=== PATIENT | male | born 1970 | race Caucasian/White ===

== ENCOUNTER 2019-08-30 15:12 | Emergency (ER) | payer BC ==
--- NOTE | 2019-08-30 15:17 | ERPHSYRPT ---
- History of Present Illness Time Seen by Provider: 08/30/19 15:16 Source: patient Exam Limitations: no limitations Physician History: 49 y/o white male with h/o chronic low back pain presents with acute exacerbation of lbp. pt denies fall or injury. he noticed an ache left lower back. as the day progressed, pain worsened and shooting down back of left buttock and leg. pt drove himself and states he cannot get a ride home. pt has no h/o htn but is found to have asymptomatic bigh bp at this visit. codeine use not a true allergy. causes nausea. Timing/Duration: today Method of Injury: other (none) Back Pain Location: lumbar spine (left side) Back Pain Radiation: buttocks, upper legs (posteriorly) Severity of Pain-Max: moderate Severity of Pain-Current: moderate Associated Symptoms: lower back pain, muscle spasms, No urinary incontinence, No loss of bowel control, No constipation, No problems urinating, No numbness in legs/feet Previous symptoms: same symptoms as today Allergies/Adverse Reactions: codeine phosphate [From Robitussin A-C] Adverse Reaction (Mild, Verified 15:19) vomiting/stomach ache guaifenesin [From Robitussin A-C] Adverse Reaction (Mild, Verified 08/30/19 15: 19) vomiting/stomach ache Home Medications: Cannabidiol (Cbd) Extract [Epidiolex] 100 mg PO DAILY 08/30/19 [History] Ibuprofen [Ibu] 800 mg PO DAILY 08/30/19 [History] Hx Tetanus, Diphtheria Vaccination/Date Given: No Hx Influenza Vaccination/Date Given: No Hx Pneumococcal Vaccination/Date Given: No - Review of Systems Constitutional: No Symptoms Eyes: No Symptoms Ears, Nose, & Throat: No Symptoms Respiratory: No Symptoms Cardiac: No Symptoms Abdominal/Gastrointestinal: No Symptoms Genitourinary Symptoms: No Symptoms Musculoskeletal: Back Pain Skin: No Symptoms Neurological: No Symptoms Psychological: No Symptoms Endocrine: No Symptoms Hematologic/Lymphatic: No Symptoms Immunological/Allergic: No Symptoms All Other Systems: Reviewed and Negative - Past Medical History Pertinent Past Medical History: Yes Neurological History: Peripheral Neuropathy ENT History: No Pertinent History Cardiac History: No Pertinent History Respiratory History: Asthma Endocrine Medical History: No Pertinent History Musculoskeletal History: Arthritis GI Medical History: Hernia History: No Pertinent History Psycho-Social History: No Pertinent History Male Reproductive Disorders: No Pertinent History Other Medical History: TONGUE CANCER-CHEMO AND RADIATION. No hx of DM - Past Surgical History Past Surgical History: Yes Neuro Surgical History: No Pertinent History Cardiac: No Pertinent History Respiratory: No Pertinent History Gastrointestinal: Hernia Repair Genitourinary: No Pertinent History Musculoskeletal: No Pertinent History Male Surgical History: No Pertinent History Other Surgical History: BIOPSY ON TONGUE - Social History Smoking Status: Current some day smoker Exposure to second hand smoke: Yes Drug Use: none Patient Lives Alone: No - Nursing Vital Signs Nursing Vital Signs: Initial Vital Signs Temperature 97.3 F 08/30/19 15:31 Pulse Rate 108 H 08/30/19 15:31 Respiratory Rate 18 08/30/19 15:31 Blood Pressure 188/119 08/30/19 15:31 O2 Sat by Pulse Oximetry 99 08/30/19 15:31 Pain Scale Pain Intensity [Left Back] 8 Pain Intensity 8 - Physical Exam General Appearance: mild distress, alert, anxiety Eye Exam: PERRL/EOMI, eyes nml inspection Ears, Nose, Throat Exam: normal ENT inspection, moist mucous membranes Neck Exam: normal inspection, non-tender, supple, full range of motion Respiratory Exam: normal breath sounds, lungs clear, airway intact, No chest tenderness, No respiratory distress Cardiovascular Exam: regular rate/rhythm, normal heart sounds, normal peripheral pulses Gastrointestinal Exam: soft, No tenderness Rectal Exam: not done Back Exam: normal inspection, normal range of motion, muscle spasm, No CVA tenderness, No vertebral tenderness Extremity Exam: normal inspection, normal range of motion, pelvis stable Neurologic Exam: alert, oriented x 3, cooperative, soft mud molder II-XII nml as tested Skin Exam: normal color, warm, dry Lymphatic Exam: No adenopathy SpO2 Interpretation: normal O2 Delivery: Room Air - Course Nursing assessment & vital signs reviewed: Yes Ordered Tests: Medication Summary Discontinued Medications Generic Name Dose Route Start Last Admin Trade Name Freq PRN Reason Stop Dose Admin Clonidine 0.1 mg 08/30/19 16:14 08/30/19 16:18 Catapres 0.1 Mg PO 08/30/19 16:15 0.1 mg STAT ONE Administration Clonidine Confirm 08/30/19 16:16 Catapres 0.1 Mg Administered 08/30/19 16:17 Dose 0.1 mg .ROUTE .STK-MED ONE - Progress Progress: improved Counseled pt/family regarding: diagnosis, need for follow-up - Departure Departure Disposition: Home Clinical Impression: HTN (hypertension), Chronic low back pain, Sciatica Condition: Stable Critical Care Time: No Referrals: FLORENCE LESLIE [Primary Care Provider] - Additional Instructions: take medications as prescribed. follow up with primary doctor tomorrow for further management of high blood pressure and chronic low back pain Prescriptions: Carisoprodol 350 mg [Soma 350 mg] 350 mg PO Q12H PRN #6 tablet PRN Reason: Muscle Spasms Ondansetron HCl [Zofran] 4 mg PO TID PRN #10 tablet PRN Reason: Nausea/Vomiting Oxycodone HCl/Acetaminophen [Percocet 5-325 mg Tablet] 1 each PO Q12H PRN #4 tablet MDD 2 PRN Reason: Pain Prednisone 10 mg [Deltasone 10 mg] 10 mg PO TID #12 tablet
[2019-08-30] MEDS ORDERED: Catapres 0.1 MG PO ONE (16:14)
[2019-08-30] MEDS ORDERED: Catapres 0.1 MG ONE (16:16)
[2019-08-30 16:45] VITALS: BP 153/103; PULSE 88; O2SAT 94
== END 2019-08-30 16:56 | disposition home or self-care (01) ==
LOC: ED 15:12
DX: I10 Essential (primary) hypertension (principal); M54.5 Low back pain; M54.30 Sciatica, unspecified side
CPT/HCPCS: 99283; A9270-GY

== ENCOUNTER 2020-01-09 14:58 | Emergency (ER) | payer BC ==
--- NOTE | 2020-01-09 15:34 | ERPHSYRPT ---
- History of Present Illness Time Seen by Provider: 01/09/20 15:08 Patient Subjective Stated Complaint: pt reports bilat ear pain, throat pain as well as swelling to the lymph nodes of the neck. pt reports history of oral cancer. Triage Nursing Assessment: pt is aox3, pupils perrl, afebrile, resps easy and non labored, radial pulses strong and equal, cap refill < 3 seconds, pt skin pink warm dry. slight swelling noted to the neck bilat, tenderness. pt skin is intact. pt denies any difficulty swallowing. Physician History: Patient is here with sore throat, swollen lymph nodes. Patient states that he had some type of oral cancer 2011. For the past 4 days patient has had swollen lymph nodes in his neck, throat pain. He has no falls, trauma. No fever here. No cough. Bilateral ear pain. Location: throat Quality: sore Radiation: none Severity: moderate Duration: 4 days Timing: gradual Modifying factors/associated signs and symptoms: Bilateral swollen lymph nodes of the neck with ear pain and history of oral cancer. Allergies/Adverse Reactions: codeine phosphate [From Robitussin A-C] Adverse Reaction (Mild, Verified 15:14) vomiting/stomach ache guaifenesin [From Robitussin A-C] Adverse Reaction (Mild, Verified 01/09/20 15: 14) vomiting/stomach ache Home Medications: Albuterol Sulfate 1 each IH Q4-6HPRN PRN 01/09/20 [History] Fluticasone Propionate [Flonase NASAL] 1 spray INTRANASAL DAILY 01/09/20 [ History] Losartan Potassium [Cozaar] 100 mg PO HS 01/09/20 [History] Hx Tetanus, Diphtheria Vaccination/Date Given: Yes Hx Influenza Vaccination/Date Given: No Hx Pneumococcal Vaccination/Date Given: No Immunizations Up to Date: Yes Travel Risk - International Travel Have you traveled outside of the country in past 3 weeks: No Have you or anyone close to you been diagnosed with or: No Do your reside in a community with a known COVID-19 case?: Yes If Yes where:: [facility] - Coronavirus Screening Has patient experienced Coronavirus symptoms: No - Review of Systems Constitutional: No Fever, No Chills Eyes: No Symptoms Ears, Nose, & Throat: No Symptoms, Ear Pain, Throat Pain (swollen lymph nodes) Respiratory: No Cough, No Dyspnea Cardiac: No Chest Pain, No Edema, No Syncope Abdominal/Gastrointestinal: No Abdominal Pain, No Nausea, No Vomiting, No Diarrhea Genitourinary Symptoms: No Dysuria Musculoskeletal: No Back Pain, No Neck Pain Skin: No Rash Neurological: No Dizziness, No Focal Weakness, No Sensory Changes Psychological: No Symptoms Endocrine: No Symptoms All Other Systems: Reviewed and Negative - Past Medical History Pertinent Past Medical History: Yes Neurological History: Migraines ENT History: No Pertinent History Cardiac History: No Pertinent History, Hypertension Respiratory History: Asthma Endocrine Medical History: No Pertinent History Musculoskeletal History: Osteoarthritis GI Medical History: Hernia History: No Pertinent History Psycho-Social History: No Pertinent History Male Reproductive Disorders: No Pertinent History Other Medical History: previous smoker. ORAL CANCER 2012, tongue, lymph nodes - Past Surgical History Past Surgical History: Yes Neuro Surgical History: No Pertinent History Cardiac: No Pertinent History Respiratory: No Pertinent History Gastrointestinal: Hernia Repair Genitourinary: No Pertinent History Musculoskeletal: No Pertinent History Male Surgical History: No Pertinent History Other Surgical History: BIOPSY ON TONGUE - Social History Smoking Status: Former smoker Exposure to second hand smoke: Yes Drug Use: none Patient Lives Alone: Yes - Nursing Vital Signs Nursing Vital Signs: Initial Vital Signs Temperature 98.1 F 01/09/20 15:01 Pulse Rate 102 H 01/09/20 15:01 Respiratory Rate 20 01/09/20 15:01 Blood Pressure 177/116 01/09/20 15:01 O2 Sat by Pulse Oximetry 98 01/09/20 15:01 Pain Scale Pain Intensity 4 - Physical Exam General Appearance: no apparent distress, alert Eye Exam: PERRL/EOMI, eyes nml inspection Ears, Nose, Throat Exam: normal ENT inspection, TMs normal, pharynx normal, moist mucous membranes Neck Exam: normal inspection, non-tender, supple, full range of motion Respiratory Exam: normal breath sounds, lungs clear, No respiratory distress Cardiovascular Exam: regular rate/rhythm, normal heart sounds, normal peripheral pulses Gastrointestinal/Abdomen Exam: soft, normal bowel sounds, No tenderness, No mass Back Exam: normal inspection, normal range of motion, No CVA tenderness, No vertebral tenderness Extremity Exam: normal inspection, normal range of motion, pelvis stable Neurologic Exam: alert, oriented x 3, cooperative, normal mood/affect, nml cerebellar function, nml station & gait, sensation nml, No motor deficits Skin Exam: normal color, warm, dry, No rash Lymphatic Exam: No adenopathy SpO2 Interpretation: normal SpO2: 98 Comments: 01/09/20 15:34 No trismus, able to fully extend neck, normal range of motion of neck without pain. Uvula is midline, no swelling of the mouth, noraml oropharynx. No exudate, no signs of meningitis, no floor of mouth swelling, no hot potato voice on exam. No buccal swelling, no gum bleeding, no signs of tooth abscess/infection. TMs are clear bilaterally. On neck exam patient does have bilateral swollen lymph nodes of his cervical lymphadenopathy. Ordered Tests: Active Orders 24 hr Category Date Time Status IV Insertion STAT Care 01/09/20 15:18 Active NECK WITH CONTRAST [CT] Stat Exams 01/09/20 15:19 Taken CBC W DIFF Stat Lab 01/09/20 15:25 Completed CMP Stat Lab 01/09/20 15:25 Completed Manual Differential NC Stat Lab 01/09/20 15:25 Completed Lab/Rad Data: Laboratory Result Diagrams 01/09/20 15:25 01/09/20 15:25 Laboratory Results 01/09/20 01/09/20 01/09/20 Range/Units 15:25 15:25 15:25 WBC 7.1 (4.0-10.5) K/mm3 RBC 5.22 (4.1-5.6) M/mm3 Hgb 15.8 (12.5-18.0) gm/dl Hct 46.9 (42-50) % MCV 89.8 (78-100) fl MCH 30.3 (26-32) pg MCHC 33.7 (32-36) g/dl RDW 13.6 (11.5-14.0) % Plt Count 205 (150-450) K/mm3 MPV 10.2 (7.5-11.0) fl Segmented Neutrophils 73 H (36.-66.) % Lymphocytes (Manual) 12 L (24-44) % Monocytes (Manual) 9 (0.0-12.0) % Eosinophils (Manual) 3 (0.00-3.0) % Basophils (Manual) 1 (0.0-1.0) % Atypical Lymphocytes 2 % Platelet Estimate NORMAL (NORMAL) RBC Morphology NORMAL Sodium 142 (137-145) mmol/L Potassium 3.8 (3.5-5.1) mmol/L Chloride 106 (98-107) mmol/L Carbon Dioxide 25 (22-30) mmol/L Anion Gap 14.6 (5-15) MEQ/L BUN 16 (9-20) mg/dL Creatinine 0.91 (0.66-1.25) mg/dL Estimated GFR > 60.0 ML/MIN Glucose 139 H (74-106) mg/dL Calcium 9.2 (8.4-10.2) mg/dL Total Bilirubin 1.00 (0.2-1.3) mg/dL AST 29 (17-59) U/L ALT 54 H (0-50) U/L Alkaline Phosphatase 76 (38-126) U/L Serum Total Protein 7.4 (6.3-8.2) g/dL Albumin 4.3 (3.5-5.0) g/dL Group A Strep Antibody NOT DETECTED (NEGATIVE) - Progress Progress: improved Progress Note: 01/09/20 15:35 Differential diagnosis includes strep throat, recurrence of cancer, viral illness. -We will obtain CBC, CMP, rapid strep -We will obtain a CT scan with IV contrast soft tissue neck looking for any abnormalities. Either way, patient absolutely needs to follow-up with his oncologist, Dr. Liriano next week. He will need a full oncologist exam looking for possible recurrence of his cancer given his sore throat, cervical lymphadenopathy and history. 01/09/20 16:22 Labs mostly unremarkable. Normal white blood cell count. However lymphocytes are low. Patient should follow-up for repeat check next week. CT scan not showing anything obvious. At this point, will have patient follow-up with his oncologist. - Departure Departure Disposition: Home Clinical Impression: Cervical lymphadenopathy, Sore throat Condition: Stable Critical Care Time: No Referrals: FLORENCE LESLIE [Primary Care Provider] - Instructions: Lymphedema (DC) Additional Instructions: Follow-up with your oncologist next week for repeat exam and repeat blood work.
[2020-01-09 15:50] LABS: Hematocrit 46.9 % (42-50); Hemoglobin 15.8 gm/dl (12.5-18.0); Mean Cell Volume 89.8 fl (78-100); Mean Corpuscular Hemoglobin 30.3 pg (26-32); Mean Corpuscular Hgb Concent. 33.7 g/dl (32-36); Mean Platelet Volume 10.2 fl (7.5-11.0); Platelet Count 205 K/mm3 (150-450); Red Blood Count 5.22 M/mm3 (4.1-5.6); Red Cell Distribution Width 13.6 % (11.5-14.0); White Blood Count 7.1 K/mm3 (4.0-10.5)
[2020-01-09 15:54] LABS: ALBUMIN 4.3 g/dL (3.5-5.0); ALKALINE PHOSPHATASE 76 U/L (38-126); ANION GAP 14.6 MEQ/L (5-15); BLOOD UREA NITROGEN 16 mg/dL (9-20); CHLORIDE 106 mmol/L (98-107); Calcium 9.2 mg/dL (8.4-10.2); Carbon Dioxide 25 mmol/L (22-30); Creatinine 1 0.91 mg/dL (0.66-1.25); Glucose 139 mg/dL (74-106); Potassium 3.8 mmol/L (3.5-5.1); SGOT/AST 29 U/L (17-59); SGPT/ALT 54 U/L (0-50); SODIUM 142 mmol/L (137-145); Total Protein 7.4 g/dL (6.3-8.2)
[2020-01-09 15:59] LABS: ATYPICAL LYMPHS 2 %; Basophil 1 % (0.0-1.0); Eosinophil 3 % (0.00-3.0); Lymphocytes 12 % (24-44); Monocyte 9 % (0.0-12.0); Neutrophils 73 % (36.-66.); Platelet Estimate NORMAL (NORMAL); Total Cells Counted 100
[2020-01-09 16:34] VITALS: BP 130/89; PULSE 76; O2SAT 96
--- NOTE | 2020-01-09 18:16 | XRAY ---
Indication: Sore throat. Swollen lymph nodes. History oral/tongue cancer. Multiple contiguous axial images obtained through the neck using 60 cc Isovue 370 contrast. Comparison: June 19, 2018. Patient is again edentulous. Stable chronic left neck benign calcifications adjacent to the sternocleidomastoid muscle and adjacent minimal subcutaneous fatty stranding presumed post-therapeutic given history oral/tongue cancer. Parotid and submandibular glands are bilaterally symmetric. No pathologic cervical, submandibular, or supraclavicular lymphadenopathy. Major arteries and veins are normal in course and caliber. Thyroid gland remains atrophic. Supra and infraglottic airway are widely patent. Normal epiglottis. Visualized osseous structures intact without suspicious bony lesions. Underlying cervical spine again demonstrates mild multilevel degenerative changes. Base of the brain and lung apices are unremarkable. Impression: 1. Again chronic left neck benign calcifications with subcutaneous fatty stranding presumed post-therapeutic given patient's history of cancer. 2. Stable mild multilevel spinal degenerative changes. 3. Remaining CT neck with contrast exam is negative. Comment: Preliminary interpretation was made by [facility]. No critical discrepancy.
== END 2020-01-09 16:36 | disposition home or self-care (01) ==
LOC: ED 14:58
DX: R59.1 Generalized enlarged lymph nodes (principal); J02.9 Acute pharyngitis, unspecified; H92.03 Otalgia, bilateral; R59.9 Enlarged lymph nodes, unspecified; Z79.899 Other long term (current) drug therapy; I10 Essential (primary) hypertension
CPT/HCPCS: 36000; 36415; 70491; 80053; 85025; 87651; 99284

== ENCOUNTER 2024-05-14 05:11 | Emergency (ER) | payer MEDICARE, BC ==
[2024-05-14 05:26] VITALS: TEMP 97.9
[2024-05-14] MEDS ORDERED: Sterile H2O 10 ml IJ ONE (05:50)
[2024-05-14] MEDS ORDERED: DUONEB 0.5-3 MG/3 ml Neb IH ONE (05:51)
[2024-05-14] MEDS ORDERED: solu-MEDROL ONE (05:51)
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
[2024-05-14] MEDS: solu-MEDROL 125 MG, Sterile H2O 10 ml 2 ML IV ONE (05:54)
[2024-05-14] MEDS: DUONEB 0.5-3 MG/3 ml Neb IH ONE (05:55)
[2024-05-14] MEDS ORDERED: ROCEPHIN 2 GM/100 ML NACL 2 GM/100 ML IVPB IV ONE (05:59)
[2024-05-14] MEDS: ROCEPHIN 2 GM/100 ML NACL 2 GM/100 ML IVPB IV ONE (06:24)
[2024-05-14 06:27] LABS: Absolute Neutrophil Ct (ANC) 6.47 x10^3/uL (1.78-5.38); BASOPHIL % 1.8 % (0.2-1.2); Basophil (Absolute #) 0.17 x10^3/uL (0.01-0.08); Eosinophil % 10.8 % (0.8-7.0); Eosinophil (Absolute #) 1.04 x10^3/uL (0.04-0.54); Hematocrit 45.5 % (40.1-51.0); Hemoglobin 15.3 g/dL (13.7-17.5); IMMATURE GRAN # 0.05 x10^3u/L (0.001-0.031); IMMATURE GRAN % 0.5 % (0.001-0.429); Lymphocyte (Absolute #) 1.24 x10^3/uL (1.32-3.57); Lymphocytes % 12.8 % (21.8-53.1); Mean Cell Volume 89.9 fL (79.0-92.2); Mean Corpuscular Hemoglobin 30.2 pg (25.7-32.2); Mean Corpuscular Hgb Concent. 33.6 g/dL (32.3-36.5); Monocytes % 7.2 % (5.3-12.2); Neutrophil % 66.9 % (34.0-67.9); Platelet Count 295 x10^3/uL (163-337); Red Blood Count 5.06 x10^6/uL (4.63-6.08); Red Cell Distribution Width 12.4 % (11.6-14.4); White Blood Count 9.7 x10^3/uL (4.23-9.07)
[2024-05-14 06:40] LABS: ALBUMIN 4.9 g/dL (3.5-5.0); ANION GAP 16.2 MEQ/L (5-15); Calcium 9.8 mg/dL (8.4-10.2); Creatinine 1 0.99 mg/dL (0.66-1.25); Potassium 3.9 mmol/L (3.5-5.1); Total Protein 7.6 g/dL (6.3-8.2)
[2024-05-14] MEDS ORDERED: Zithromax 500 MG/ 250 ML NaCl Premix 500 MG/250 ML IVPB IV ONE (06:54)
[2024-05-14] MEDS: Zithromax 500 MG/ 250 ML NaCl Premix 500 MG/250 ML IVPB IV STA (06:57)
[2024-05-14 07:04] LABS: INFLUENZA A NEGATIVE (NEGATIVE); INFLUENZA B NEGATIVE (NEGATIVE); RESPIRATORY SYNCTIAL VIRUS NEGATIVE (NEGATIVE); SARS-CoV-2 Xpert Express NEGATIVE (NEGATIVE)
[2024-05-14 08:20] VITALS: O2SAT 97
--- NOTE | 2024-05-14 09:00 | XRAY ---
Indication: Short of breath. Comparison: September 19, 2022 Portable chest remains inflated and clear. Heart not enlarged. Bony thorax intact again with mild degenerative changes and minimal levoscoliosis. No new/acute findings.
[2024-05-14 10:03] VITALS: BP 176/110; PULSE 100; RESP 21
== END 2024-05-14 10:22 | disposition short-term general hospital (02) ==
LOC: ED 05:11
DX: J44.1 Chronic obstructive pulmonary disease with (acute) exacerbation (principal); I21.4 Non-ST elevation (NSTEMI) myocardial infarction; R77.8 Other specified abnormalities of plasma proteins; R07.9 Chest pain, unspecified; R06.02 Shortness of breath; E78.5 Hyperlipidemia, unspecified; I10 Essential (primary) hypertension; Z79.52 Long term (current) use of systemic steroids; Z79.899 Other long term (current) drug therapy
CPT/HCPCS: 0241U; 36000; 36415; 71045; 80053; 84484; 85025; 85379; 87040; 93005; 93041; 94640; 94760; 96365; 96367; 96374; 99285; J0456; J0696; J2919; A9270-GY

== ENCOUNTER 2024-07-20 20:12 | Emergency (ER) | payer MEDICARE, BC ==
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
[2024-07-20 20:32] VITALS: TEMP 98.7
[2024-07-20] MEDS ORDERED: Sodium Chloride 0.9% 500 ML 500 ML IV ONE (21:09)
[2024-07-20] MEDS ORDERED: Zofran 4 MG/2 ML VIAL ONE (21:09)
[2024-07-20] MEDS: Sodium Chloride 0.9% 500 ML 500 ML IV ONE (21:13)
[2024-07-20] MEDS: Zofran 4 MG/2 ML VIAL IV PRN (21:14)
[2024-07-20 21:21] VITALS: RESP 19
[2024-07-20 21:26] LABS: Absolute Neutrophil Ct (ANC) 12.07 x10^3/uL (1.78-5.38); BASOPHIL % 0.6 % (0.2-1.2); Basophil (Absolute #) 0.08 x10^3/uL (0.01-0.08); Eosinophil % 3.3 % (0.8-7.0); Eosinophil (Absolute #) 0.47 x10^3/uL (0.04-0.54); Hematocrit 41.8 % (40.1-51.0); Hemoglobin 13.7 g/dL (13.7-17.5); IMMATURE GRAN # 0.05 x10^3u/L (0.001-0.031); IMMATURE GRAN % 0.4 % (0.001-0.429); Lymphocyte (Absolute #) 0.59 x10^3/uL (1.32-3.57); Lymphocytes % 4.2 % (21.8-53.1); Mean Cell Volume 92.5 fL (79.0-92.2); Mean Corpuscular Hemoglobin 30.3 pg (25.7-32.2); Mean Corpuscular Hgb Concent. 32.8 g/dL (32.3-36.5); Mean Platelet Volume 9.7 fL (9.4-12.4); Monocyte (Absolute #) 0.88 x10^3/uL (0.30-0.82); Monocytes % 6.2 % (5.3-12.2); Neutrophil % 85.3 % (34.0-67.9); Platelet Count 217 x10^3/uL (163-337); Red Blood Count 4.52 x10^6/uL (4.63-6.08); Red Cell Distribution Width 13.5 % (11.6-14.4); White Blood Count 14.1 x10^3/uL (4.23-9.07)
[2024-07-20 21:43] LABS: ALBUMIN 4.4 g/dL (3.5-5.0); ANION GAP 16.5 MEQ/L (5-15); BILIRUBIN,TOTAL 1.4 mg/dL (0.2-1.3); Calcium 9.1 mg/dL (8.4-10.2); Creatinine 1 1.05 mg/dL (0.66-1.25); EST GLOMERULAR FILTRATION RATE 83.3 ML/MIN; Potassium 3.9 mmol/L (3.5-5.1)
[2024-07-20 23:04] LABS: Appearance Clear (Clear); Bacteria None Seen /HPF (None Seen); Bilirubin Negative (Negative); Blood Negative (Negative); Epithelial Cells None Seen /HPF (None Seen); Glucose, Urine Negative (Negative); Hyaline Casts NONE SEEN /LPF (0-2); Ketones Trace (Negative); Leukocyte Esterase Trace (Negative); Nitrite Negative (Negative); Protein,Urine Dip Trace (Negative); RBC 0-2 /HPF (0-5); Urobilinogen 0.2 mg/dL (0.2); WBC 0-2 /HPF (0-5)
[2024-07-20 23:22] LABS: Slide Review 1 YES
[2024-07-20] MEDS ORDERED: Levofloxacin 500 MG Tablet ONE (23:35)
[2024-07-20] MEDS: Levofloxacin 500 MG Tablet PO ONE (23:35)
[2024-07-20] MEDS ORDERED: Sodium Chloride 0.9% 1000 ML 1,000 ML ONE (23:45)
[2024-07-20] MEDS: Sodium Chloride 0.9% 1000 ML 1,000 ML IV STA (23:46)
[2024-07-21 00:05] VITALS: BP 81/56; PULSE 75; O2SAT 93
== END 2024-07-21 01:00 | disposition left against medical advice (07) ==
LOC: ED 20:12
DX: D72.829 Elevated white blood cell count, unspecified (principal); R50.9 Fever, unspecified; I95.9 Hypotension, unspecified; R51.9 Headache, unspecified; M79.10 Myalgia, unspecified site; I10 Essential (primary) hypertension; E78.5 Hyperlipidemia, unspecified; Z79.899 Other long term (current) drug therapy
CPT/HCPCS: 36000; 36415; 80053; 81001; 82150; 83690; 85025; 86308; 87040; 87086; 87651; 96374; 99284; J2405; A9270-GY